=== PATIENT | female | born 1990 | race Caucasian/White ===

== ENCOUNTER 2019-01-01 17:20 | Emergency (ER) | payer SELFPAY ==
[2019-01-01 17:27] VITALS: BP 140/87; PULSE 80; TEMP 98.1; BMI 23.3
--- NOTE | 2019-01-01 17:37 | PDOC ---
Attending Attestation - Resident Resident Name: Jasson Heard - ED Attending Attestation I have performed the following: I have examined & evaluated the patient, The case was reviewed & discussed with the resident, I agree w/resident's findings & plan, Exceptions are as noted - HPI HPI: 01/01/19 17:53 Patient complains of pain in her left hand, distal fifth metacarpal, fifth MCP joint, and PIP joint of the fifth finger. She fell on Monday night with direct impact to the hand. She has a prior fracture in the distant past of the same part of the hand. She has an IUD and no symptoms of . - Physicial Exam PE: 01/01/19 17:54 Physical exam reveals mild swelling, minimal ecchymosis, tenderness of the distal fifth metacarpal, MCP joint, and PIP joint of the fifth finger. There are no deformities. Capillary refill is intact. No sensory deficits. There is questionable ability to extend the finger. This may be due to pain, but an extensor tendon injury is still a possibility. - Medical Decision Making 01/01/19 17:55 Assessment: Probable fifth metacarpal fracture, possible sprain PIP joint fifth finger, possible extensor tendon injury Plan: X-ray, splinting, and follow-up with hand specialist to assess tendon function once pain has somewhat subsided. 01/01/19 18:36 X-ray shows what is probably an old fracture of the head of the fifth metacarpal with angulation. There is what appears to be a new lucency through the head with minimal displacement, the angulation probably being from the original fracture. An ulnar gutter splint was applied by Dr. Heard in the position of function, with slight dorsal angulation of the wrist and mild flexion of the digits. After application, the patient was more comfortable. There was no distal numbness tingling or pain. There was good fingertip motion and good capillary refill. She is referred to orthopedist for follow-up within 1 week. Instructed regarding rest ice elevation and Motrin.
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
== END 2019-01-01 18:57 | disposition home or self-care (01) ==
LOC: FER 17:20
PROC: 2W3DX1Z Immobilization of Left Lower Arm using Splint (ICD-10-PCS; principal; 2019-01-01)
DX: S62.92XA Unspecified fracture of left hand, initial encounter for closed fracture (principal); W10.8XXA Fall (on) (from) other stairs and steps, initial encounter; Y93.89 Activity, other specified; Y92.29 Other specified public building as the place of occurrence of the external cause
CPT/HCPCS: 73130-TC-LT-FY; 99282-25

== ENCOUNTER 2020-01-28 04:17 | Emergency (ER) | payer SELFPAY ==
[2020-01-28] MEDS ORDERED: IBUPROFEN 600 MG TABLET (FP) PO ONE ×2 (05:08→05:16)
[2020-01-28 05:18] VITALS: BP 132/93; PULSE 82; TEMP 98.1; BMI 23.0
== END 2020-01-28 06:50 | disposition home or self-care (01) ==
LOC: JER 04:17
DX: M25.561 Pain in right knee (principal)
CPT/HCPCS: 73562-TC-RT-FY; 99285-25